=== PATIENT | female | born 1965 | race Caucasian/White ===

== ENCOUNTER 2022-01-17 16:37 | Emergency (ER) | payer OTHER ==
[~2022-01-17 16:37] MED LIST: AMOXICILLIN875 MG PO; AZITHROMYCIN250 MG PO; CERTAGEN1 EACH PO; CHANTIX1 EACH PO; COLESTIPOL HCL1 GM PO; DICLOFENAC SODI75 MG PO; EPIPEN 2-P0.3 MG/0.3 IM; IBUPROFEN800 M1 PO; IMODIUM2 MG PO; NAPROSYN375 MG PO; PREDNISONE10 MG PO; VANCOMYCIN HCL125 MG PO; VENLAFAXINE HC150 MG PO; VITAMIN B-121000 MC1 PO; VITAMIN D-32000 UNIT PO; VOLTAREN **OUT75 MG PO
[2022-01-17 17:38] LABS: BASOPHIL 0.5 % (0-2); EOSINOPHIL 2.3 % (0-5); HCT 45.4 % (37.0-47.0); HGB 14.8 g/dl (12.5-16.0); LYMPHOCYTE 29.9 % (15-48); MCH 31.1 pg (25.0-31.0); MCHC 32.6 g/dL (32.0-36.0); MCV 95.4 fL (78.0-100.0); MONOCYTE 8.5 % (0-12); NEUTROPHIL 58.4 % (41-80); NRBC 0; PLT 203 K/uL (150-400); RBC 4.76 M/uL (4.20-5.40); RDW 13.4 % (11.5-14.0); WBC 7.4 K/uL (4.0-10.5)
[2022-01-17 17:52] LABS: CREATININE 0.79 mg/dL (0.51-0.95)
[2022-01-17] MEDS ORDERED: ONDANSETRON ODT4 MG PO (18:52)
== END 2022-01-17 19:59 | disposition home or self-care (01) ==
LOC: FER 16:37
PROVIDERS: Emergency Medicine
DX: L28.0 Lichen simplex chronicus (principal); R11.2 Nausea with vomiting, unspecified; R19.7 Diarrhea, unspecified; F17.210 Nicotine dependence, cigarettes, uncomplicated; Z20.822 Contact with and (suspected) exposure to COVID-19; Z28.310 Unvaccinated for COVID-19
CPT/HCPCS: 36415; 71045; 80048; 85025; J1200; J2405; J2930; J7030; U0002